=== PATIENT | male | born 1960 | race Caucasian/White ===

== ENCOUNTER 2016-12-29 20:25 | Emergency (ER) | payer SELFPAY ==
[2016-12-29 20:36] VITALS: BMI 30.4
--- NOTE | 2016-12-29 21:42 | DR.GENAD ---
HPI - PCP Primary Care Physician: Dr. Mustafa - Complaint/Symptoms Chief Complaint Doctors Comments: Patient has been evaluated and treated by his primary care physician for chest pain. He was seen today. Chief Complaint:: " Im having some chest pain been going on for about week." - Source History Provided: Patient - Mode of Arrival Mode of Arrival: Ambulatory - Timing Onset of Chief Complaint: 12/22/16 PMH - PMH Past Medical History: Yes Past Medical History: Diabetes, Hypertension Past Surgical History: Yes Surgical History: Ortho Surgery - Family History History of Family Medical Conditions: Yes Family Medical History: Diabetes Mellitus - Social History Alcohol Use: None Do you use any recreational Drugs:: No Lives With: Family Lives Where: Home - infectious screening Have you traveled outside the country in the last 6 months?: No ROS - Review of Systems Eyes: No Symptoms Reported ENTM: No Symptoms Reported Respiratoy: No Symptoms Reported Cardiovascular: No Symptoms Reported Gastrointestinal/Abdominal: No Symptoms Reported Genitourinary: No Symptoms Reported Neurological: No Symptoms Reported Musculoskeletal: No Symptoms Reported Integumentary: No Symptoms Reported Hematologic/Lymphatic: No Symptoms Reported Endocrine: No Symptoms Reported Psychiatric: No Symptoms Reported PE - Vital Signs Vitals: Temperature 98.0 F Pulse Rate 83 Respiratory Rate 18 Blood Pressure [Right Arm] 185/85 Blood Pressure [Left Arm] 137/82 Blood Pressure 209/98 O2 Sat by Pulse Oximetry 98 - General Limitations: No Limitations General Appearance: Alert, In No Apparent Distress - Head Head Exam: Normal Inspection, Atraumatic - Eyes Eye exam: Normal Appearance, PERRL, EOMI - ENT ENT Exam: Normal Exam External Ear Exam: Normal External Inspection TM/Canal Exam: Bilateral Normal Nose Exam: Normal Nose Exam, Sinus Tenderness Mouth Exam: Normal Inspection Throat Exam: Normal Inspection - Neck Neck Exam: Normal Inspection - Chest Chest Inspection: Normal Inspection - Respiratory Respiratory Exam: Normal Lung Sounds Bilat Respiratory Exam: Bilateral Clear to Auscultation - Cardiovascular Cardiovascular Exam: Regular Rate, Normal Rhythm - Abdominal Exam Abdominal Exam: Normal Inspection Abdominal Tenderness: negative: RUQ, RLQ, LUQ, LLQ, Epigastrium, Suprapubic, Diffuse, Mild, Moderate, Severe, Other - Extremities Extremities Exam: Normal Inspection, Full ROM - Back Back Exam: Normal Inspection, Full ROM - Neurologic Neurological Exam: Alert, Oriented X3, CN II-XII Intact - Psychiatric Psychiatric Exam: Normal Affect, Depressed - Skin Skin Exam: Warm, Dry, Intact ROR - Labs Reviewed Result Diagrams: 12/29/16 22:01 12/29/16 22:01 Laboratory: WBC 6.0 X10^3/uL (3.6-10.0) 12/29/16 22:01 RBC 4.35 X10^6/uL (4.7-6.0) L 12/29/16 22:01 Hgb 12.6 g/dL (13.5-18.0) L 12/29/16 22:01 Hct 34.9 % (42.0-54.0) L 12/29/16 22:01 MCV 80.3 fL (80.0-100.0) 12/29/16 22: MCH 29.0 pg (27.0-34.0) 12/29/16 22: MCHC 36.2 g/dL (33.0-35.0) H 12/29/16 22:01 RDW 14.5 % (11.6-16.5) 12/29/16 22:01 Plt Count 263 X10^3/uL (150.0-450.0) 12/29/16 22:01 MPV 8.4 fL (7.4-11.0) 12/29/16 22:01 Neut % 58.2 % (42.0-75.0) 12/29/16 22:01 Lymph % 30.5 % (21.0-51.0) 12/29/16 22:01 [place] % 6.1 % (0.0-13.0) 12/29/16 22:01 Eos % 4.7 % (0.9-2.9) H 12/29/16 22:01 Baso % 0.5 % (0.2-1.0) 12/29/16 22:01 Neut # 3.5 x10^3/uL (2.2-4.8) 12/29/16 22:01 Lymph # 1.8 X10^3/uL (1.3-2.9) 12/29/16 22:01 [place] # 0.4 x10^3/uL (0.3-0.8) 12/29/16 22:01 Eos # 0.3 x10^3/uL (0.0-0.2) H 12/29/16 22:01 Baso # 0.0 X10^3/uL (0.0-0.1) 12/29/16 22:01 Absolute Nucleated RBC 0.0 /100WBC 12/29/16 22:01 Sodium 134 mmol/L (136-145) L 12/29/16 22:01 Corrected Sodium 140 mmol/L (136-145) 12/29/16 22:01 Potassium 5.0 mmol/L (3.5-5.1) 12/29/16 22:01 Chloride 99 mmol/L (98-107) 12/29/16 22:01 Carbon Dioxide 27.1 mmol/L (21-32) 12/29/16 22:01 BUN 34 mg/dL (7-18) H 12/29/16 22:01 Creatinine 1.79 mg/dL (0.70-1.30) H 12/29/16 22:01 Est GFR (MDRD) Af Amer 50 (>60) L 12/29/16 22:01 Est GFR (MDRD) Non-Af 42 (>60) L 12/29/16 22:01 Glucose 344 mg/dL (65-99) H 12/29/16 22:01 Calcium 8.4 mg/dL (8.5-10.1) L 12/29/16 22:01 Corrected Calcium TNP 12/29/16 22:01 Phosphorus 4.7 mg/dL (2.6-4.7) 12/29/16 22:01 Magnesium 1.6 mg/dL (1.7-2.9) L 12/29/16 22:01 Total Bilirubin 0.30 mg/dL (0.2-1.0) 12/29/16 22:01 AST 24 Units/L (15-37) 12/29/16 22:01 ALT 35 Units/L (12-78) 12/29/16 22:01 Alkaline Phosphatase 78 Units/L (46-116) 12/29/16 22:01 Creatine Kinase 394 Units/L (39-308) H 12/29/16 22:01 CK-MB (CK-2) 7.8 ng/mL (0-4.0) H* 12/29/16 22:01 CK/CKMB % Calc 2.0 % (<4) 12/29/16 22:01 Troponin I < 0.02 ng/mL (0-1.5) 12/29/16 22:01 Total Protein 7.0 g/dL (6.4-8.2) 12/29/16 22:01 Albumin 3.4 g/dL (3.4-5.0) 12/29/16 22:01 Globulin 3.6 g/dL (2.5-4.5) 12/29/16 22:01 Albumin/Globulin Ratio 0.9 Ratio (1.1-2.1) L 12/29/16 22:01 Specimen Type Clean catch urine 12/29/16 23:37 Urine Color Yellow (YELLOW) 12/29/16 23:37 Urine Appearance Clear (CLEAR) 12/29/16 23:37 Urine pH 6.0 (5.0 - 8.0) 12/29/16 23:37 Ur Specific [place] 1.010 (1.000-1.030) 12/29/16 23:37 Urine Protein 4+ (NEGATIVE) 12/29/16 23:37 Urine Glucose (UA) 4+ (NEGATIVE) 12/29/16 23:37 Urine Ketones Negative (NEGATIVE) 12/29/16 23:37 Urine Occult Blood 3+ (NEGATIVE) 12/29/16 23:37 Urine Nitrite Negative (NEGATIVE) 12/29/16 23:37 Urine Bilirubin Negative (NEGATIVE) 12/29/16 23:37 Urine Urobilinogen Normal (NORMAL) 12/29/16 23:37 Ur Leukocyte Esterase Negative (NEGATIVE) 12/29/16 23:37 Urine RBC 2-6 /HPF (NEGATIVE) 12/29/16 23:37 Urine WBC 0-3 /HPF (NEGATIVE) 12/29/16 23:37 Ur Squamous Epith Cells Rare /HPF (NEGATIVE) 12/29/16 23:37 Urine Bacteria Negative /HPF (NEGATIVE) 12/29/16 23:37 Ur Culture Indicated? No/not indicated 12/29/16 23:37 - XRAY XRAY Interpreted by: Radiologist (chest: negative, CT abd/pelv: no abnormality) - Diagnosis Discharge Problem: Chronic chest pain - Discharge Plan Condition: Stable - Follow ups/Referrals Follow ups/Referrals: CHANDRA MUSTAFA [Primary Care Provider] - 3 days - Instructions
[2016-12-29] MEDS ORDERED: CATAPRES TAB 0.1 MG PO ONE ×2 (21:44→23:48)
[2016-12-29] MEDS ORDERED: CATAPRES TAB 0.1 MG ONE ×2 (21:47→23:49)
--- NOTE | 2016-12-29 22:22 | RAD ---
EXAM: Chest X-ray INDICATION: Chest pain COMPARISION: Prior exam from August 17, 2014 TECHNIQUE: AP, single view FINDINGS: The lungs are clear in the lung volumes are within normal limits. No pleural effusion or pneumothora x. The cardiac silhouette and mediastinum are normal. The regional skeleton is intact. IMPRESSION: Normal Chest X-Ray Reported By:
[2016-12-29 22:26] LABS: BLOOD UREA NITROGEN 34 mg/dL (7-18); CALCIUM 8.4 mg/dL (8.5-10.1); CARBON DIOXIDE 27.1 mmol/L (21-32); CHLORIDE 99 mmol/L (98-107); COR NA(FOR HYPERGLY) 140 mmol/L (136-145); CREATININE 1.79 mg/dL (0.70-1.30); GLUCOSE 344 mg/dL (65-99); SODIUM 134 mmol/L (136-145); TROPONIN I < 0.02 ng/mL (0-1.5); eGFR BLACK RACES 50 (>60); eGFR NON BLACK RACES 42 (>60)
[2016-12-29 22:48] LABS: ALANINE AMINOTRANSFERASE 35 Units/L (12-78); ALBUMIN 3.4 g/dL (3.4-5.0); ALKALINE PHOSPHATASE 78 Units/L (46-116); CREATINE KINASE 394 Units/L (39-308); MAGNESIUM 1.6 mg/dL (1.7-2.9); PHOSPHORUS 4.7 mg/dL (2.6-4.7)
[2016-12-29 22:51] LABS: BASOPHILS % (AUTO) 0.5 % (0.2-1.0); EOSINOPHILS # (AUTO) 0.3 x10^3/uL (0.0-0.2); MONOCYTES # (AUTO) 0.4 x10^3/uL (0.3-0.8); RED CELL DISTRIBUTION WIDTH 14.5 % (11.6-16.5)
[2016-12-29 22:55] LABS: EOSINOPHILS % (AUTO) 4.7 % (0.9-2.9); HEMATOCRIT 34.9 % (42.0-54.0); HEMOGLOBIN 12.6 g/dL (13.5-18.0); LYMPHOCYTES # (AUTO) 1.8 X10^3/uL (1.3-2.9); LYMPHOCYTES % (AUTO) 30.5 % (21.0-51.0); MEAN CORPUSCULAR HGB CONC 36.2 g/dL (33.0-35.0); MEAN CORPUSCULAR VOLUME 80.3 fL (80.0-100.0); MEAN PLATELET VOLUME 8.4 fL (7.4-11.0); MONOCYTES % (AUTO) 6.1 % (0.0-13.0); NEUTROPHILS # (AUTO) 3.5 x10^3/uL (2.2-4.8); NEUTROPHILS % (AUTO) 58.2 % (42.0-75.0); PLATELET COUNT 263 X10^3/uL (150.0-450.0); RED BLOOD COUNT 4.35 X10^6/uL (4.7-6.0)
[2016-12-29 23:03] LABS: CREATINE KINASE MB 7.8 ng/mL (0-4.0)
[2016-12-29 23:44] LABS: BILIRUBIN,URINE NEGATIVE (NEGATIVE); BLOOD/HEMOGLOBIN,URINE 3+ (NEGATIVE); GLUCOSE, URINE 4+ (NEGATIVE); KETONES,URINE NEGATIVE (NEGATIVE); LEUKOCYTE ESTERASE ,URINE NEGATIVE (NEGATIVE); NITRITES,URINE NEGATIVE (NEGATIVE); PROTEIN,URINE 4+ (NEGATIVE); UROBILINOGEN,URINE NORMAL (NORMAL)
[2016-12-29 23:45] LABS: ASPARTATE AMINO TRANSFERASE 24 Units/L (15-37)
[2016-12-29 23:50] LABS: APPEARANCE,URINE CLEAR (CLEAR); BACTERIA,URINE NEGATIVE /HPF (NEGATIVE); COLOR,URINE YELLOW (YELLOW); SQUAMOUS EPITHELIAL CELL,UR RARE /HPF (NEGATIVE)
[2016-12-30 01:03] VITALS: BP 185/85
--- NOTE | 2016-12-30 01:03 | CT ---
EXAM: CT ABDOMEN AND PELVIS WITHOUT CONTRAST INDICATION: Flank pain, hematuria COMPARISION: No priors available for comparison TECHNIQUE: Axial CT examination of the abdomen and pelvis was performed without intravenous contrast. Coronal a nd sagittal reconstructions were created using the axial data. FINDINGS: The lung bases are clear. The liver, spleen, pancreas, adrenal glands, kidneys, and gallbladder are normal. There is no evidence of biliary ductal dilatation. The aorta and inferior vena cava are norm al in caliber. The bowel loops are nonobstructed. No abnormal mass, lymphadenopathy, or fluid collection. Urinary bladder is normal. The appendix is normal. The regional skeleton is intact. IMPRESSION: Normal CT examination of the abdomen and pelvis. Reported By:
== END 2016-12-30 01:18 | disposition home or self-care (01) ==
LOC: ER 20:42
DX: R07.89 Other chest pain (principal); R94.31 Abnormal electrocardiogram [ECG] [EKG]; I10 Essential (primary) hypertension
CPT/HCPCS: 36415; 71020; 74176; 80053; 81001; 82550; 82553; 83735; 84100; 84484; 85025; 93005; 93010; 99283